=== PATIENT | female | born 2000 | race Caucasian/White ===

== ENCOUNTER 2019-08-28 21:16 | Emergency (ER) | payer BC, SELFPAY ==
--- NOTE | ~2019-08-28 | CT_ITS ---
EXAMINATION: CT chest wo con DATE: 08/29/2019 00:24 INDICATION: Right chest pain, decreased breath sounds TECHNIQUE: Computed tomography (CT) of the chest was performed without intravenous contrast. Automate d exposure control and iterative reconstruction technique were employed. Exam dose: 126.11 mGy-cm to eligio exam DLP. COMPARISON: 08/28/2021 view chest FINDINGS: Normal heart size. No pericardial or pleural effusion. No hilar or mediastinal mass lesion or lymphadenopathy. Normal caliber of the thoracic aorta. Status post cholecystectomy. The adrenal glands appear normal. Included upper abdominal structures ar e unremarkable. The lungs are normally inflated and clear of infiltrate or consolidation or mass lesion. Included skeletal structures are unremarkable. IMPRESSION: Negative examination Reviewed, dictated and finalized at [facility]. Reviewed, dictated and finalized at [facility]. CARPENTER IMPRESSION: Negative examination
--- NOTE | ~2019-08-28 | XR_ITS ---
EXAMINATION: XR chest 2V DATE: 08/28/2019 22:13 INDICATION: Right anterior chest pain with right jaw pain TECHNIQUE: PA and lateral views of the chest are obtained. COMPARISON: None available FINDINGS: The lungs are free of acute opacities. There is no pleural effusion or pneumothorax. The ca rdiomediastinal silhouette is normal. The visualized bones and soft tissues are unremarkable. Surgica l clips in the right upper quadrant are likely from prior cholecystectomy. IMPRESSION: 1. No acute cardiopulmonary abnormality. Reviewed, dictated and finalized at [facility]. RAM SCHEDULER
[2019-08-28 21:19] VITALS: BP 130/91; PULSE 93; RESP 16; TEMP 36.3; O2SAT 100
[2019-08-28 21:35] VITALS: PULSE 84
--- NOTE | 2019-08-28 21:36 | ED.CHESTPAIN ---
HPI - Chest Pain General Chief Complaint: Chest Pain Stated Complaint: right sided chest pain Time Seen by Provider: 08/28/19 21:36 Source: patient Mode of arrival: ambulatory Limitations: no limitations History of Present Illness HPI narrative: A 19 y/o female presents to the ED with c/o sharp right-sided CP that radiates to her left chest and jaw. Pt states she was just standing when the pain began about 1 hour ago. There are no aggravating factors. Pt reports N/V today but does not think this is related to her CP because she was vomiting last night. Pt rates her current pain as a 7/10 in severity but notes it was a 9/10 earlier. Pt denies a PMHx of heart problems but states that she has a FHx of an AR of a relative in their mid 50s. Pt's LNMP was on 08/19/2019. She reports a dry cough, SOB, lightheadedness, dizziness, and occasional alcohol use, but denies diarrhea, ABD pain, smoking, and drug use. Onset (ago): hour(s) (1) Pain location: right chest Pain radiation: jaw/teeth and other (left chest) Related Data Allergies Allergy/AdvReac Type Severity Reaction Status Date / Time No Known Allergies Allergy Verified 08/28/19 21:40 Review of Systems Review of Systems: All systems reviewed & are unremarkable except as noted in HPI and below Constitutional: Comments: Reports: lightheadedness, dizziness Cardiovascular: Cardiovascular: Reports chest pain ( right-sided CP that radiates to left chest and jaw) Respiratory: Respiratory: Reports cough (dry) and Reports dyspnea Gastrointestinal: Gastrointestinal: Denies abdominal pain, Denies diarrhea, Reports nausea and Reports vomiting PMFSH Surgical History Surgical History History of cholecystectomy Social History Social History (Updated 08/28/19 @ 22:03 by Massiel Zayas) Smoking status: Never smoker Alcohol intake: current Alcohol use details: occasional Substance use: never Gender identity (if verbalized by the patient): Female Comments No PCP on file. Exam Narrative: Exam Narrative: GENERAL: Well-appearing, well-nourished, and in no acute distress. HEAD: Normocephalic, atraumatic EYES: PERRLA and EOMI, conjunctiva clear without discharge EARS: TM's clear bilaterally without erythema or dullness NOSE: Nares clear, no rhinorrhea or epistaxis THROAT:Mucous membranes moist, Oropharynx normal without erythema, exudate, peritonsillar swelling or fluctuance NECK: Supple, without lymphadenopathy or mass RESPIRATORY: No respiratory distress, Airway patent, Respirations non-labored, Clear to auscultation without rales, rhonchi or wheeze HEART: Regular rate and rhythm. No murmur heard. Normal peripheral pulses. ABDOMEN: Soft, nontender, nondistended, normal active bowel sounds. No masses. No rebound or guarding, No organomegaly. EXTREMITIES: No edema, normal strength with full range of motion. SKIN: Warm, dry, normal color without rash NEURO: Alert and oriented x3. CN 2-12 grossly intact. No focal deficits. PSYCH: Normal mood and affect. Course Course Emergency Course: PAtient presented with right chest pain and she had previous been vomiting. CT chest rule out pneumothorax or pneumomediastinum as patient had been having vomiting. She is stable for discharge. Vital Signs Vital signs: Vital Signs Temperature 97.3 F L 08/28/19 21:19 Pulse Rate 93 08/28/19 21:19 Respiratory Rate 16 08/28/19 21:19 Blood Pressure 130/91 H 08/28/19 21:19 Pulse Oximetry 100 08/28/19 21:19 Temperature 97.3 F L 08/28/19 21:19 Pulse Rate 87 08/29/19 01:51 Respiratory Rate 18 08/29/19 01:51 Blood Pressure 112/70 08/29/19 01:51 Pulse Oximetry 97 08/29/19 01:51 MDM - Chest Pain Lab Data Attestation: I reviewed the patient's lab results. Result diagrams: 08/28/19 21:48 08/28/19 21:48 Labs: Lab Results 08/28/19 08/28/19 08/28/19 Range/Units 21:48 21:48 2
[2019-08-28] MEDS: LACTATED RINGERS 1,000 ML 999 ML IV CONT (21:54)
[2019-08-28] MEDS: ONDANSETRON INJ 4 MG/2 ML VIAL IV PUSH (21:55)
[2019-08-28] MEDS: MORPHINE SULFATE 2 MG/ML INJ IV PUSH (21:55)
--- NOTE | 2019-08-28 22:00 | ECG_ITS ---
Measurements Intervals [place] Rate: 81 P: 71 [place]: 153 QRS: 59 QRSD: 89 T: 43 QT: 371 QTc: 431 Interpretive Statements SINUS RHYTHM WITH SINUS ARRHYTHMIA NORMAL ECG Electronically Signed On 08-29-2019 7:11:11 EQUIPMENT APPLICATION SPECIALIST by Kelby Dexter D.O.
[2019-08-28 22:02] LABS: Basophils Percent Auto 0.3 % (0.2-1.2); Eosinophils Absolute Auto 0.1 K/mm3 (0-0.3); Eosinophils Percent Auto 1.2 % (0-4.4); Hemoglobin 13.9 g/dL (12.0-15.0); Immature Granulocyte Absolute 0.01 K/mm3 (0.00-0.031); Immature Granulocyte Percent A 0.2 % (0-0.5); Lymphocytes Absolute Auto 0.72 K/mm3 (0.9-3.2); Mean Corpuscular HGB Conc 32.3 g/dl (32-36); Mean Corpuscular Hemoglobin 29.2 pg (26-34); Mean Corpuscular Volume 90.3 fl (80-100); Mean Platelet Volume 10.3 fl (7.4-10.4); Monocytes Absolute Auto 0.5 K/mm3 (0.1-0.6); Neutrophils Absolute Auto 4.7 K/mm3 (1.3-6.7); Neutrophils Percent Auto 77.3 % (45.5-73.1); Platelet Count Result 367 k/mm3 (150-375); Red Blood Count 4.76 M/mm3 (4.2-5.4); Red Cell Distribution Width 12.2 % (11.5-14.5)
[2019-08-28 22:05] LABS: Alanine Aminotransferase 12 U/L (4-35); Albumin Level 4.7 g/dL (3.5-5.1); Alkaline Phosphatase 57 U/L (38-126); Aspartate Amino Transferase 19 U/L (14-36); Bilirubin,Total 0.4 mg/dL (0.2-1.3); Blood Urea Nitrogen 11 mg/dL (7-17); Calcium 9.1 mg/dL (8.4-10.2); Carbon Dioxide 27 mmol/L (22-30); Chloride 99 mmol/L (98-107); Estimated CRCL calculation 76 ml/min; Estimated Glomerular Filt Rate > 60; Glucose 91 mg/dL (65-105); INR 1.1; Lipase 86 U/L (23-300); Potassium 3.8 mmol/L (3.4-5.0); Prothrombin Time 13.5 Seconds (11.1-14.7); Sodium 138 mmol/L (137-145)
[2019-08-28 22:10] LABS: D Dimer 0.27 ug/mL (<0.48)
[2019-08-28 22:17] LABS: Troponin I < 0.012 ng/mL (0.000-0.034)
[2019-08-28 22:51] VITALS: BP 107/77; PULSE 72
[2019-08-28 22:52] VITALS: BP 113/80; PULSE 85
[2019-08-28 22:54] VITALS: BP 111/78; PULSE 92
[2019-08-28 22:55] VITALS: BP 117/78; PULSE 93; RESP 16; O2SAT 100
[2019-08-29 00:10] VITALS: BP 109/70; PULSE 78; RESP 19; O2SAT 100
[2019-08-29] MEDS: MORPHINE SULFATE 2 MG/ML INJ IV PUSH (00:13)
[2019-08-29] MEDS: SODIUM CHLORIDE 0.9% IV 50 ML 500 ML (00:22)
[2019-08-29 01:32] LABS: Troponin I < 0.012 ng/mL (0.000-0.034)
[2019-08-29 01:51] VITALS: BP 112/70; PULSE 87; RESP 18; O2SAT 97
--- NOTE | 2019-09-02 19:38 | PC.NURSE ---
LATE ENTRY This note is being entered to document information to the patient's record. The following information was omitted on [08/29/2019], NS stop at 0050.
== END 2019-08-29 01:52 | disposition home or self-care (01) ==
PROVIDERS: Emergency Provider General Practice
DX: R07.89 Other chest pain (principal); R11.2 Nausea with vomiting, unspecified
CPT/HCPCS: 36415; 71046; 71250; 80053; 81025; 83690; 84484; 85025; 85380; 85610; 85730; 93005; 96361; 96374; 96375; 96376; 99284; J2270; J2405; J7120